=== PATIENT | female | born 1935 | race Hispanic/Latino ===

== ENCOUNTER 2016-09-03 10:16 | Outpatient (CLI) | payer MEDICARE ==
[2016-09-03] MEDS ORDERED: NACL ONE (11:01)
[2016-09-03 11:03] LABS: Blood Urea Nitrogen 22 mg/dL (7-17)
--- NOTE | 2016-09-03 11:38 | Cat Scan Report ---
CT of the chest with IV contrast. History: Dyspnea/right lower lobe atelectasis. Findings: There is an irregular mass lesion in the right infrahilar region measuring approximately 5 cm in maximum dimension. There is associated right lower lobe atelectasis. There is a moderate-sized right pleural effusion. There is no evidence of mediastinal adenopathy. No pulmonary nodules or additional masses are seen. Impression: Right infrahilar mass/neoplasm with right lower lobe atelectasis and moderate right pleural effusion.
== END 2016-09-03 10:17 | disposition home or self-care (01) ==
LOC: CT 10:16
PROVIDERS: ATTEND Internal Medicine Pulmonary Disease
DX: J44.9 Chronic obstructive pulmonary disease, unspecified (principal); J18.9 Pneumonia, unspecified organism; J98.11 Atelectasis; J90 Pleural effusion, not elsewhere classified
CPT/HCPCS: 36415; 71260; 82565; 84520; Q9967